=== PATIENT | female | born 1995 | race Hispanic/Latino ===

== ENCOUNTER 2023-02-07 00:57 | Emergency (ER) | payer MEDICAID ==
[~2023-02-07] VITALS: Ht 165.1 cm; Wt 77.6 kg
[2023-02-07 03:25] LABS: BASOPHILS # (AUTO) 0.08 K/uL (0.00-0.20); EOSINOPHILS # (AUTO) 0.22 K/uL (0.00-0.70); EOSINOPHILS % (AUTO) 2.8 % (0.0-8.0); HEMATOCRIT 36.7 % (36-48); IMMATURE GRANULOCYTE ABSOLUTE 0.02 K/uL (0-1); LYMPHOCYTES # (AUTO) 3.4 K/uL (1.0-4.8); LYMPHOCYTES % (AUTO) 42.7 % (21.0-51.0); MEAN CORPUSCULAR HEMOGLOBIN 29.4 pg (27.0-33.0); MEAN CORPUSCULAR HGB CONC 32.2 g/dL (32.0-36.0); MEAN CORPUSCULAR VOLUME 91.3 fL (79-99); MONOCYTES # (AUTO) 0.6 K/uL (0.1-1.0); MONOCYTES % (AUTO) 7.8 % (3.0-13.0); NEUTROPHILS # (AUTO) 3.6 K/uL (1.8-7.7); NEUTROPHILS % (AUTO) 45.4 % (40.0-77.0); PLATELET COUNT (AUTO) 158 K/uL (130-400); RED BLOOD CELL COUNT(AUTO) 4.02 MIL/uL (4.00-5.50); RED CELL DISTRIBUTION WIDTH 14.6 % (11.0-15.5)
[2023-02-07 03:29] LABS: APPEARANCE,URINE CLOUDY (CLEAR); BILIRUBIN,URINE NEGATIVE (NEGATIVE); COLOR,URINE YELLOW (YELLOW); GLUCOSE, URINE (UA) NEGATIVE (NEGATIVE); KETONES,URINE NEGATIVE (NEGATIVE); LEUKOCYTE ESTERASE ,URINE 25 Leu/uL (NEGATIVE); NITRATE,URINE NEGATIVE (NEGATIVE); OCCULT BLOOD,URINE NEGATIVE (NEGATIVE); PROTEIN,URINE 20 mg/dL (NEGATIVE)
[2023-02-07] MEDS ORDERED: 0.9%NACL 1000ML 1,000 ML IV ONE ×2 (03:30→04:00)
[2023-02-07] MEDS ORDERED: ONDANSETRON 4MG INJ IVP ONE (03:30)
[2023-02-07 03:39] LABS: ADD UA MICROSCOPIC YES; CREATININE 0.8 mg/dL (0.5-1.5); POTASSIUM 3.9 mmol/L (3.5-5.1)
[2023-02-07 03:41] LABS: MUCUS,URINE MANY LPF (None Seen); SQUAMOUS EPITHELIAL CELL,UR MANY /HPF (0-2)
[2023-02-07 03:44] LABS: ALBUMIN 3.9 g/dL (3.5-5.0); BILIRUBIN,TOTAL 0.2 mg/dL (0.2-1.0); TOTAL PROTEIN, SERUM 7.1 g/dL (6.0-8.3)
[2023-02-07] MEDS ORDERED: MORPHINE 4 MG SYG IVP ONE (04:00)
[2023-02-07] MEDS ORDERED: FAMOTIDINE 20MG VIAL IV ONE ×2 (04:00→04:03)
[2023-02-07] MEDS ORDERED: MORPHINE 4 MG SYG ONE (04:02)
[2023-02-07] MEDS ORDERED: CEFTRIAXONE 2GM VIAL IVPB ONE (04:30)
[2023-02-07 10:33] VITALS: BP 117/70; PULSE 51; RESP 18; O2SAT 100
[2023-02-07] MEDS ORDERED: ACET-2079 PO (11:10)
[2023-02-07] MEDS ORDERED: MORPHINE 2 MG SYG IVP ONE ×2 (11:30)
== END 2023-02-07 11:30 | disposition home or self-care (01) ==
LOC: EDH 00:57
DX: R10.10 Upper abdominal pain, unspecified (principal); Z90.49 Acquired absence of other specified parts of digestive tract
CPT/HCPCS: 99284; 96365; 96366; 96375; 80053; 83690; 85025; 87088; 81001; 81025; 36415; 96376; J2270 ×2; J7030; J0696; J2405; S0028; J3490

== ENCOUNTER 2024-08-01 16:12 | Emergency (ER) | payer SELFPAY ==
[~2024-08-01] VITALS: Ht 157.5 cm; Wt 72.6 kg
[~2024-08-01 16:12] MED LIST: ACET-2079 PO; CYCL10TA16 PO; IBUP-2070 PO
--- NOTE | 2024-08-01 16:19 | ERN ---
ED Note History of Present Illness Stated Complaint: ABDOMINAL PAIN Chief Complaint: Abdominal Pain Time Seen by MD: 16:16 Dictation: PATIENT IS A 28-YEAR-OLD FEMALE COMING IN TODAY WITH A EPIGASTRIC PAIN WITH NAUSEA VOMITING ONSET WAS YESTERDAY. NO FEVER NO CHILLS NO CHEST PAIN NO BACK PAIN NO SOB. SHE STATES SHE WAS ABLE TO EAT THIS MORNING DESPITE THE PAIN AND DID NOT THROW IT UP. SHE STATES SHE HAD SIMILAR PAIN A YEAR AGO AND WAS TAKEN TO [facility] AND THEY DID SURGERY SHE IS NOT ABLE TO TELL ME WHAT THE SURGERY WAS. Allergies: Coded Allergies: No Known Allergies (Unverified Allergy, Unknown, 02/07/23) Home Meds Active Scripts Cyclobenzaprine HCl (Flexeril) 10 Mg Tab, 10 MG PO TID, #9 TAB Prov:HÉCTOR ZARCO V SCHOOL DIRECTOR 03/21/23 Ibuprofen (Ibuprofen) 600 Mg Tablet, 600 MG PO Q6H PRN for PAIN, #30 TAB Prov:HÉCTOR ZARCO V SCHOOL DIRECTOR 03/21/23 Acetaminophen with Codeine (Acetaminophen-Cod #3 Tablet) 1 Each Tablet, 1 TAB PO Q6H PRN for SEVERE PAIN (7-10), #15 TAB Prov:JANET GARCIA MD 02/07/23 Past Medical History Past Medical History: No Pertinent History Surgical History: Appendectomy, Social History: Negative, Lives with family History: Not Applicable RN Note Reviewed/Agreed w/PFSH: Yes Review of System Dictation CONSTITUTIONAL: NEGATIVE EXCEPT FOR HPI HEAD/FACE: NEGATIVE EXCEPT FOR HPI EENT: NEGATIVE EXCEPT FOR HPI RESPIRATORY: NEGATIVE EXCEPT FOR HPI GASTROINTESTINAL/ABDOMINAL: NEGATIVE EXCEPT FOR HPI EPIGASTRIC PAIN WITH NAUSEA VOMITING GENITOURINARY: NEGATIVE EXCEPT FOR HPI MUSCULOSKELETAL: NEGATIVE EXCEPT FOR HPI INTEGUMENTARY: NEGATIVE EXCEPT FOR HPI NEUROLOGICAL/PSYCH: NEGATIVE EXCEPT FOR HPI HEMATOLOGIC/LYMPHATIC: NEGATIVE EXCEPT FOR HPI ALL SYSTEMS NEGATIVE, EXCEPT NOTED ABOVE. 13 POINT REVIEW OF SYSTEMS ASSESSED AND ALL NEGATIVE EXCEPT FOR ABOVE. Initial Vital Sign VS Vital Signs Date Time Temp Pulse Resp B/P (MAP) Pulse Ox O2 Delivery O2 Flow Rate FiO2 08/01/24 16:15 98.2 67 16 126/8 98 Room Air 0 08/01/24 16:44 21 Physical Exam Dictation VITAL SIGNS REVIEWED GENERAL APPEARANCE: ALERT, ORIENTED X 3, MILD ACUTE DISTRESS, WELL DEVELOPED, NOURISHED. HEAD AND FACE: NON-TRAUMATIC. EYES: PERRL, PINK CONJUNCTIVAS, EYELID NO TRAUMA, ANTERIOR CHAMBER WITH ARCUS SENILIS. EARS: PINNAS INTACT AND NO SIGNS OF TRAUMA OR ERYTHEMA EAR CANALS CLEAR AND NO DISCHARGE TM NO ERYTHEMA NOSE: NO DISCHARGE, NO BLEEDING. OROPHARYNX: MOUTH NORMAL, TONGUE PINK, PHARYNX CLEAR,NO ERYTHEMA, TONSILS NO EXUDATES, NO ABSCESSES NOTED, MUCOUS MEMBRANE MOIST NECK: SUPPLE, NON-TENDER, NO THYROMEGALY, NO MASSES, NO JVD, NO BRUITS BREAST:DEFERRED CHEST:NO TENDERNESS, NO CREPITUS, NO PARADOXICAL MOVEMENT, NO RETRACTIONS LUNGS:CLEAR, WELL-VENTILATED, SYMMETRIC, NO RALES, NO WHEEZING, NO RHONCHI, NO STRIDOR, GOOD BREATH SOUNDS BILATERALLY HEART: REGULAR RATE, REGULAR RHYTHM, NO MURMUR, NO GALLOPS VASCULAR: NO PERIPHERAL EDEMA, ABDOMEN: SOFT, POSITIVE BOWEL SOUNDS, NONDISTENDED, NO GUARDING, EPIGASTRIC TENDERNESS WITH PALPATION, NO REBOUND, NO MASSES NO HEPATOMEGALY, NO SPLENOMEGALY, NO PETER'S SIGN, NO HERNIAS. RECTAL: DEFERRED GENITAL: DEFERRED NEUROLOGICAL: NORMAL SPEECH, MOTOR FUNCTION INTACT, SENSORY FUNCTION INTACT MUSCULOSKELETAL: NECK NONTENDER, FULL RANGE OF MOTION, BACK NONTENDER, FULL RANGE OF MOTION, EXTREMITIES: NONTENDER, FULL RANGE OF MOTION SKIN: COLOR PINK, DRY, NO TURGOR, NO RASH, NO LACERATIONS, NO ABRASIONS, NO CONTUSIONS. LYMPHATIC: DEFERRED Results (Laboratory/Radiology) Laboratory/Radiology Laboratory Tests Test 08/01/24 16:42 White Blood Count 6.3 K/uL (4.8-10.8) Red Blood Count 4.20 MIL/uL (4.00-5.50) Hemoglobin 12.1 g/dL (12.0-16.0) Hematocrit 37.6 % (36-48) Mean Corpuscular Volume 89.5 fL (79-99) Mean Corpuscular Hemoglobin 28.8 pg (27.0-33.0) Mean Corpuscular Hemoglobin Concent 32.2 g/dL (32.0-36.0) Red Cell Distribution Width 15.7 % (11.0-15.5) H Platelet Count 249 K/uL (130-400) Mean Platelet Volume 12.3 fL (7.5-10.5) H Immature Granulocyte % (Auto) 0.3 % (0-1) Neutrophils (%) (Auto) 59.2 % (40.0-77.0) Lymphocytes (%) (Auto) 28.7 % (21.0-51.0) Monocytes (%) (Auto) 7.9 % (3.0-13.0) Eosinophils (%) (Auto) 3.0 % (0.0-8.0) Basophils (%) (Auto) 0.9 % (0.0-5.0) Neutrophils # (Auto) 3.8 K/uL (1.8-7.7) Lymphocytes # (Auto) 1.8 K/uL (1.0-4.8) Monocytes # (Auto) 0.5 K/uL (0.1-1.0) Eosinophils # (Auto) 0.19 K/uL (0.00-0.70) Basophils # (Auto) 0.06 K/uL (0.00-0.20) Absolute Immature Granulocyte (auto 0.02 K/uL (0-1) Nucleated Red Blood Cells 0.0 % (0.0-0.19) Sodium Level 137 mmol/L (136-145) Potassium Level 4.0 mmol/L (3.5-5.1) Chloride Level 102 mmol/L (101-111) Carbon Dioxide Level 31 mmol/L (21-32) Blood Urea Nitrogen 11 mg/dL (7-18) Creatinine 0.8 mg/dL (0.5-1.0) Glomerular Filtration Rate Calc 102 mL/min (>90) Random Glucose 80 mg/dL (70-105) Total Calcium 9.0 mg/dL (8.5-10.1) Labs Reviewed?: Yes ED Course ED Course Orders Procedure Category Date Status Time Cbc With Differential LAB 08/01/24 Complete 16:16 ,Urine Test LAB 08/01/24 Logged 16:16 Urinalysis Profile LAB 08/01/24 Logged 16:16 0.9%Nacl 1000ml (Ns PHA 08/01/24 Complete 1000ml) 16:30 Morphine 2mg Syg PHA 08/01/24 Complete (Morphine 2mg Syg) 16:30 Ondansetron 4mg Inj PHA 08/01/24 Complete (Zofran 4mg Inj) 16:30 Famotidine 20mg Vial PHA 08/01/24 Complete (Pepcid 20mg Vial) 16:30 Basic Metabolic Panel LAB 08/01/24 Complete 16:16 Lidocaine Hcl 2% PHA 08/01/24 Complete Viscous (Lidocaine Hcl 17:30 Mag/Alum/Simeth 30ml PHA 08/01/24 Complete (Maalox Plus 30ml) 17:30 Dicyclomine Hcl PHA 08/01/24 Complete (Bentyl 10mg/5ml 17:30 Current Medications Medications (Trade) Dose Ordered Sig/Ruthie Route PRN Reason Start Time Stop Time Status Last Admin Dose Admin Al Hydroxide/Mg Hydroxide (MAALox PLUS 30ML) 30 ml ONCE ONCE PO 08/01/24 17:30 08/01/24 17:31 DC 08/01/24 17:31 Dicyclomine HCl (Bentyl 10mg/5ml Syrup) 10 mg ONCE ONCE PO 08/01/24 17:30 08/01/24 17:31 DC 08/01/24 17:31 Famotidine (Pepcid 20mg Vial) 20 mg ONCE ONCE IV 08/01/24 16:30 08/01/24 16:31 DC 08/01/24 16:50 Lidocaine HCl (Lidocaine HCl 2% Viscous) 10 ml ONCE ONCE PO 08/01/24 17:30 08/01/24 17:31 DC 08/01/24 17:31 Morphine Sulfate (morPHINE 2MG SYG) 2 mg ONCE ONCE IVP 08/01/24 16:30 08/01/24 16:31 DC 08/01/24 16:50 Ondansetron HCl (zoFRAN 4MG INJ) 4 mg ONCE ONCE IVP 08/01/24 16:30 08/01/24 16:31 DC 08/01/24 16:50 Sodium Chloride 1,000 ml @ 0 mls/hr ONCE ONCE IV 08/01/24 16:30 08/01/24 16:31 DC 08/01/24 16:50 Vital Signs Date Time Temp Pulse Resp B/P (MAP) Pulse Ox O2 Delivery O2 Flow Rate FiO2 08/01/24 17:56 98.1 78 18 115/71 95 Room Air* 0 21 08/01/24 16:44 98.8 71 20 110/74 95 Room Air* 0 21 08/01/24 16:15 98.2 67 16 126/8 98 Room Air 0 835 PATIENT STATES PAIN IS MARKEDLY REDUCED AFTER TREATMENT. SHE WILL BE DISCHARGED HOME WITH THE OMEPRAZOLE AND CARAFATE TOLD TO FOLLOW UP WITH /BINDER FOLDER OPERATOR SOON POSSIBLE Medical Decision Making MDM MEDICAL DISCHARGE MAKING BASED ON LABS AND URINALYSIS FOR GASTRITIS VERSUS GASTROENTERITIS VERSUS PANCREATITIS PAIN REDUCED AFTER GI COCKTAIL AND PEPCID PATIENT DISCHARGED HOME ON BLAND DIET WITH WATER FOR FLUIDS ONLY CARAFATE A.C. AND HS FOR 10 DAYS OMEPRAZOLE DX & DISP Disposition: Discharge Departure Impression: Primary Impression: Acute gastritis Condition: Stable Scripts Omeprazole (Omeprazole) 40 Mg Capsule.dr 1 CAP PO DAILY for 30 Days, #30 CAP 0 Refills Prov: JUDI WALTERS SUPERINTENDENT DRILLING 08/01/24 Sucralfate (Carafate) 1 Gram Tablet 1 GM PO ACHS for 10 Days, #40 TAB Prov: JUDI WALTERS SUPERINTENDENT DRILLING 08/01/24 Additional Instructions: FOLLOW-UP WITH PRIMARY CARE PROVIDER IN 1 TO 2 DAYS. TAKE MEDICATIONS DIRECTED HERE IN THE EMERGENCY ROOM. OKAY TO CONTINUE HOME MEDICATIONS UNLESS OTHERWISE DISCUSSED DURING YOUR VISIT IN THE EMERGENCY ROOM TODAY. RETURN TO YOUR NEAREST EMERGENCY ROOM IF SYMPTOMS WORSEN OR IF THERE IS NO IMPROVEMENT. CALL 911 IF YOU NEED IMMEDIATE ASSISTANCE. TAKE TYLENOL OR MOTRIN [id number] NEEDED AND IF NO CONTRAINDICATIONS ARE PRESENT. INCREASE ORAL HYDRATION. A WOUND CULTURE OR URINE CULTURE WAS ORDERED HERE IN THE EMERGENCY ROOM DEPARTMENT PLEASE FOLLOW-UP WITH PRIMARY CARE PROVIDER AND ADVISE THEM TO GET REPEAT PORTS FROM OUR FACILITY. IF YOU HAD ANY JOHN WRAP/SPLINTS THAT WERE APPLIED HERE, PLEASE DO NOT REMOVE THEM UNTIL YOU SEE YOUR PRIMARY CARE OR SPECIALTY. TAKE CARAFATE DIRECTED UNTIL GONE. TAKE OMEPRAZOLE DAILY DIRECTED. SUGGEST BLAND DIET WITH WATER FOR FLUIDS ONLY. NO SPICY FOODS, NO ALCOHOL, NO SODA POP, NO ICE TEAS, NO CITRUS FRUIT JUICE UNTIL CLEARED BY BINDER FOLDER OPERATOR, CALL FOR AN APPOINTMENT IN THE NEXT 1-2 DAYS. Referrals: SELF,REFERRAL (PCP) HALEY BEARD MD Time of Disposition: 18:38 I have reviewed the case, and I agree with, Diagnosis and Plan JUDI WALTERS NP Aug 01, 2024 16:19
[2024-08-01] MEDS: ondanSETRON 4MG INJ IVP ONE (16:50)
[2024-08-01] MEDS: FAMOTIDINE 20MG VIAL IV ONE (16:50)
[2024-08-01] MEDS: morPHINE 2 MG SYG IVP ONE (16:50)
[2024-08-01] MEDS: 0.9%NACL 1000ML 1,000 ML IV ONE (16:50)
[2024-08-01 16:54] LABS: BASOPHILS # (AUTO) 0.06 K/uL (0.00-0.20); BASOPHILS % (AUTO) 0.9 % (0.0-5.0); EOSINOPHILS # (AUTO) 0.19 K/uL (0.00-0.70); HEMATOCRIT 37.6 % (36-48); IMMATURE GRANULOCYTE ABSOLUTE 0.02 K/uL (0-1); LYMPHOCYTES # (AUTO) 1.8 K/uL (1.0-4.8); LYMPHOCYTES % (AUTO) 28.7 % (21.0-51.0); MEAN CORPUSCULAR HEMOGLOBIN 28.8 pg (27.0-33.0); MEAN CORPUSCULAR HGB CONC 32.2 g/dL (32.0-36.0); MEAN CORPUSCULAR VOLUME 89.5 fL (79-99); MONOCYTES # (AUTO) 0.5 K/uL (0.1-1.0); MONOCYTES % (AUTO) 7.9 % (3.0-13.0); NEUTROPHILS # (AUTO) 3.8 K/uL (1.8-7.7); NEUTROPHILS % (AUTO) 59.2 % (40.0-77.0); PLATELET COUNT (AUTO) 249 K/uL (130-400); RED CELL DISTRIBUTION WIDTH 15.7 % (11.0-15.5); WHITE BLOOD COUNT (AUTO) 6.3 K/uL (4.8-10.8)
[2024-08-01 17:02] LABS: CREATININE 0.8 mg/dL (0.5-1.0)
[2024-08-01] MEDS: LIDOCAINE HCL 2% VISCOUS 15 ML UDCUP PO ONE (17:31)
[2024-08-01] MEDS: MAG/ALUM/SIMETH 30 ML UDCUP PO ONE (17:31)
[2024-08-01] MEDS: DICYCLOMINE HCL 10 MG/5 ML ML PO ONE (17:31)
[2024-08-01 18:39] VITALS: BP 117/72; PULSE 76; RESP 18; TEMP 98.8; O2SAT 95
[2024-08-01] MEDS ORDERED: SUCR1TAB28 PO (18:39)
[2024-08-01] MEDS ORDERED: OMEP40CA21 PO (18:39)
== END 2024-08-01 18:45 | disposition home or self-care (01) ==
LOC: EDH 16:12
DX: K29.00 Acute gastritis without bleeding (principal); R11.2 Nausea with vomiting, unspecified; Z90.49 Acquired absence of other specified parts of digestive tract; Z98.890 Other specified postprocedural states
CPT/HCPCS: 99284; 96374; 96361; 96375 ×2; 80048; 85025; 36415; J3490; J2270; J7030; J2405